=== PATIENT | female | born 1990 | race Hispanic/Latino ===

== ENCOUNTER 2021-09-05 14:06 | Emergency (ER) | payer SELFPAY | END 2021-09-05 14:11 | disposition left against medical advice (07) | LOC: MADERS 14:06 | DX: Z53.21 Procedure and treatment not carried out due to patient leaving prior to being seen by health care provider (principal) ==

== ENCOUNTER 2022-06-11 20:56 | Emergency (ER) | payer OTHER | END 2022-06-11 21:45 | disposition short-term general hospital (02) | LOC: MADERS 20:56 | DX: O60.03 Preterm labor without delivery, third trimester (principal); O24.429 Gestational diabetes mellitus in childbirth, unspecified control; Z3A.38 38 weeks gestation of pregnancy | CPT/HCPCS: 99284 ==

== ENCOUNTER 2024-09-07 23:37 | Emergency (ER) | payer OTHER, SELFPAY ==
[2024-09-07] MEDS ORDERED: Famotidine 20 MG TAB ONE (23:48)
[2024-09-07] MEDS ORDERED: diphenhydrAMINE 50 MG/ML VIAL ONE (23:48)
== END 2024-09-08 00:45 | disposition home or self-care (01) ==
LOC: MADERS 23:37
DX: T78.40XA Allergy, unspecified, initial encounter (principal); L50.9 Urticaria, unspecified
CPT/HCPCS: 96372; 99282; J1200; J2919